=== PATIENT | female | born 1965 | race Hispanic/Latino ===

== ENCOUNTER → 2017-05-10 | Outpatient (CLI) | payer BC ==
--- NOTE | 2017-05-22 16:20 | Diagnostic Imaging Report ---
#[id number] - MGSCRBIL #BILATERAL DIGITAL SCREENING MAMMOGRAM WITH CAD: 05/10/2017 CLINICAL: Routine screening. Comparison is made to exams dated: 05/11/2016 mammogram, 06/09/2014 mammogram and 05/19/2013 mammogram - [facility]. Current study contains 4 films. The tissue of both breasts is heterogeneously dense. This may lower the sensitivity of mammography. Current study was also evaluated with a Computer Aided Detection (CAD) system. There is an oval density in the left breast middle depth superior region seen on the mediolateral oblique view only-this appears more prominent and is now highlighted by CAD analysis. This could represent a dominant cyst. There is vascular calcification in both breasts. No other significant masses, calcifications, or other findings are seen in either breast. IMPRESSION: INCOMPLETE: NEEDS ADDITIONAL IMAGING EVALUATION The oval density in the left breast is indeterminate. Exaggerated CC, spot compression and lateral views with possible ultrasound are recommended. The patient will be contacted by the Mammography Department to schedule this appointment. Roberto Ron Jr., D.O. cw/:05/22/2017 12:02:14 Machine Bander And Cell[employer] Helper: Jennifer HDEZ(Shruthi)(Jenn), [facility] letter sent: Additional Imaging Needed Mammogram BI-RADS: 0 Indeterminate
== END ==
LOC: MAMMO 08:18
PROVIDERS: ATTEND Internal Medicine
DX: Z12.31 Encounter for screening mammogram for malignant neoplasm of breast (principal)
CPT/HCPCS: G0202

== ENCOUNTER → 2018-05-09 | Outpatient (CLI) | payer BC ==
--- NOTE | 2018-05-26 08:38 | Diagnostic Imaging Report ---
#[id number] - MGSCRBIL #BILATERAL DIGITAL SCREENING MAMMOGRAM WITH CAD: 05/09/2018 CLINICAL: Routine screening. Comparison is made to exams dated: 05/10/2017 mammogram and 06/09/2014 mammogram - [facility]. Current study contains 4 films. The tissue of both breasts is heterogeneously dense. This may lower the sensitivity of mammography. Current study was also evaluated with a Computer Aided Detection (CAD) system. There are benign lymph nodes in both breasts. No significant masses, calcifications, or other findings are seen in either breast. There has been no significant interval change. IMPRESSION: BENIGN There is no mammographic evidence of malignancy. A 1 year screening mammogram is recommended. The patient will be notified by letter of the results. Roberto curtis/yesenia:05/26/2018 07:55:10 Collections And Archives Director: Nora HDEZ(Shruthi)(M), [facility] letter sent: Compared to Prior B9 Mammogram BI-RADS: 2 Benign
== END ==
LOC: MAMMO 15:10
PROVIDERS: ATTEND Obstetrics & Gynecology
DX: Z12.31 Encounter for screening mammogram for malignant neoplasm of breast (principal)
CPT/HCPCS: 77067

== ENCOUNTER → 2019-05-15 | Outpatient (CLI) | payer BC ==
--- NOTE | 2019-06-01 14:33 | Diagnostic Imaging Report ---
#[id number] - MGSCRBIL #BILATERAL DIGITAL SCREENING MAMMOGRAM WITH CAD: 05/15/2019 CLINICAL: Routine screening. Comparison is made to exams dated: 05/09/2018 mammogram and 05/10/2017 mammogram - [facility]. The tissue of both breasts is heterogeneously dense. This may lower the sensitivity of mammography. Current study was also evaluated with a Computer Aided Detection (CAD) system. There are benign lymph nodes in both breasts. No significant masses, calcifications, or other findings are seen in either breast. There has been no significant interval change. IMPRESSION: BENIGN There is no mammographic evidence of malignancy. A 1 year screening mammogram is recommended. The patient will be notified by letter of the results. PIOTR pcaheco/yesenia:06/01/2019 10:38:49 Home Builder: Nora HDEZ(Shruthi)(Jenn), [facility] letter sent: Compared to Prior B9 Mammogram BI-RADS: 2 Benign
== END ==
LOC: MAMMO 10:01
PROVIDERS: ATTEND Obstetrics & Gynecology
DX: Z12.31 Encounter for screening mammogram for malignant neoplasm of breast (principal)
CPT/HCPCS: 77067

== ENCOUNTER → 2020-05-11 | Outpatient (CLI) | payer BC | LOC: MAMMO 03-17 15:44 | PROVIDERS: ATTEND Internal Medicine | DX: Z12.31 Encounter for screening mammogram for malignant neoplasm of breast (principal) | CPT/HCPCS: 77067 ==

== ENCOUNTER → 2021-05-11 | Outpatient (CLI) | payer BC | LOC: MAMMO 10:16 | PROVIDERS: ATTEND Obstetrics & Gynecology | DX: Z12.31 Encounter for screening mammogram for malignant neoplasm of breast (principal) | CPT/HCPCS: 77067 ==

== ENCOUNTER → 2024-05-21 | Outpatient (REF) | payer BC | LOC: MAMMO 08:45 | PROVIDERS: ATTEND Internal Medicine | DX: Z12.31 Encounter for screening mammogram for malignant neoplasm of breast (principal) | CPT/HCPCS: 77067 ==